=== PATIENT | male | born 1955 | race American Indian/Alaskan Native ===

== ENCOUNTER 2016-08-09 20:35 | Emergency (ER) | payer MEDICARE ==
[2016-08-09 20:49] VITALS: BP 163/98
== END 2016-08-09 20:47 | disposition left against medical advice (07) ==
LOC: ED 20:35
DX: M79.671 Pain in right foot (principal); M79.672 Pain in left foot; Z53.21 Procedure and treatment not carried out due to patient leaving prior to being seen by health care provider

== ENCOUNTER 2016-08-11 01:58 | Emergency (ER) | payer MEDICARE ==
[2016-08-11 02:08] VITALS: BP 148/94
--- NOTE | 2016-08-11 04:23 | Emergency Department Report ---
ED Lower Extremity HPI - General Chief Complaint: Extremity Problem,Nontraumatic Stated Complaint: BILATERAL FOOT PAIN Time Seen by Provider: 08/11/16 03:37 Source: patient Mode of arrival: Ambulatory Limitations: No Limitations - History of Present Illness Initial Comments: This is a 61-year-old male that presents with chronic intermittent bilateral feet pain that has been going on since 2012. Patient stated has an appointment today with his "foot" doctor. Patient denies numbness, tingling, CP, SOB, n/v, fever, chills, headache, swelling,stiff neck, calf pain, calf tenderness, difficulty breathing, feeling of cold sensation in extremities. Patient denies any trauma or falls to the area. Patient describes pain as throbbing 11/29. Allergies to aspirin. MD Complaint: foot injury -: Gradual, year(s) (4) Injury: Foot: Right, Left Severity: moderate Severity scale (0 -10): 8 Improves With: nothing Worsens With: nothing Associated Symptoms: ambulatory. denies: snap/pop sensation, swelling, numbness , tingling, unable to bear weight, able to partially bear weight - Related Data Previous Rx's Medication Instructions Recorded Last Taken Type Lisinopril [Zestril TAB] 10 mg PO QDAY #60 tablet 06/11/14 Unknown Rx Potassium Chloride [Klor-Con M10] 2 tab PO DAILY #60 tab.er.prt 06/11/14 Unknown Rx Omeprazole [PriLOSEC] 40 mg PO DAILY #60 capsule. 08/03/14 Unknown Rx Ibuprofen [Motrin 400 MG tab] 400 mg PO Q8H PRN #20 tablet 10/03/14 Unknown Rx traMADol [Ultram 50 MG tab] 50 mg PO Q6HR PRN #10 tablet 10/03/14 Unknown Rx Acetaminophen/Codeine [Tylenol #3] 1 tab PO Q8H PRN #21 tab 12/09/14 Unknown Rx Diclofenac [Seda Gee] 75 mg PO Q12H #30 tablet 12/09/14 Unknown Rx Acetaminophen [Tylenol] 650 mg PO Q6HR PRN #15 tablet 08/11/16 Unknown Rx Allergies Allergy/AdvReac Type Severity Reaction Status Date / Time aspirin AdvReac Vomiting Verified 12/04/14 03:38 ED Review of Systems ROS: Stated complaint: BILATERAL FOOT PAIN Other details as noted in HPI Constitutional: denies: chills, fever Eyes: denies: eye pain, eye discharge, vision change ENT: denies: ear pain, throat pain Respiratory: denies: cough, shortness of breath, wheezing Cardiovascular: denies: chest pain, palpitations Endocrine: no symptoms reported Gastrointestinal: denies: abdominal pain, nausea, diarrhea Genitourinary: denies: urgency, dysuria Musculoskeletal: denies: back pain, joint swelling, arthralgia Skin: denies: rash, lesions Neurological: denies: headache, weakness, paresthesias Psychiatric: denies: anxiety, depression Hematological/Lymphatic: denies: easy bleeding, easy bruising ED Past Medical Hx - Past Medical History Previous Medical History?: Yes Hx Hypertension: Yes Hx Heart Attack/AMI: No Hx Congestive Heart Failure: Yes (per chart, pt denies) Hx Diabetes: No Hx Deep Vein Thrombosis: No Hx Pulmonary Embolism: No Hx GERD: Yes Hx Arthritis: Yes Hx Asthma: No Hx COPD: No Hx Tuberculosis: No Hx HIV: No Additional medical history: high cholesterol, hypokalemia,PANCREATITIS - Surgical History Past Surgical History?: Yes Hx Coronary Stent: No Hx Open Heart Surgery: No Hx Pacemaker: No Hx Internal Defibrillator: No Hx Cholecystectomy: No Hx Appendectomy: No Hx Breast Surgery: No Additional Surgical History: hernia repair in 2006 - Social History Smoking Status: Current Every Day Smoker Substance Use Type: Alcohol - Medications Home Medications: Home Medications Medication Instructions Recorded Confirmed Last Taken Type Lisinopril [Zestril TAB] 10 mg PO QDAY #60 tablet 06/11/14 08/03/14 Unknown Rx Potassium Chloride [Klor-Con M10] 2 tab PO DAILY #60 tab.er.prt 06/11/14 Unknown Rx Omeprazole [PriLOSEC] 40 mg PO DAILY #60 capsule.dr 08/03/14 Unknown Rx Ibuprofen [Motrin 400 MG tab] 400 mg PO Q8H PRN #20 tablet 10/03/14 Unknown Rx traMADol [Ultram 50 MG tab] 50 mg PO Q6HR PRN #10 tablet 10/03/14 Unknown Rx Acetaminophen/Codeine [Tylenol #3] 1 tab PO Q8H PRN #21 tab 12/09/[address] [Seda Gee] 75 mg PO Q12H #30 tablet 12/09/14 Unknown Rx Acetaminophen [Tylenol] 650 mg PO Q6HR PRN #15 tablet 08/11/16 Unknown Rx ED Physical Exam - General Limitations: No Limitations General appearance: alert, in no apparent distress - Head Head exam: Present: atraumatic, normocephalic, normal inspection - Eye Eye exam: Present: normal appearance, PERRL, EOMI. Absent: scleral icterus, conjunctival injection, nystagmus, periorbital swelling, periorbital tenderness Pupils: Present: normal accommodation - ENT ENT exam: Present: normal exam, normal orophraynx, mucous membranes moist, TM's normal bilaterally, normal external ear exam - Neck Neck exam: Present: normal inspection, full ROM. Absent: tenderness, meningismus, lymphadenopathy, thyromegaly - Respiratory Respiratory exam: Present: normal lung sounds bilaterally. Absent: respiratory distress, wheezes, rales, rhonchi, stridor, chest wall tenderness, accessory muscle use, decreased breath sounds, prolonged expiratory - Cardiovascular Cardiovascular Exam: Present: regular rate, normal rhythm, normal heart sounds. Absent: bradycardia, tachycardia, irregular rhythm, systolic murmur, diastolic murmur, rubs, gallop - GI/Abdominal GI/Abdominal exam: Present: soft, normal bowel sounds. Absent: distended, tenderness, guarding, rebound, rigid, diminished bowel sounds - Rectal Rectal exam: Present: deferred - Extremities Exam Extremities exam: Present: normal inspection, full ROM, normal capillary refill. Absent: tenderness, pedal edema, joint swelling, calf tenderness - Expanded Lower Extremity Exam Left Hip exam: Present: normal inspection (bilateral), full ROM. Absent: tenderness , swelling, abrasion Upper Leg exam: Present: normal inspection (bilateral), full ROM. Absent: tenderness, swelling, crepidus, dislocation, erythema Knee exam: Present: normal inspection (bilateral), full knee extension. Absent : full ROM, tenderness, swelling, abrasion, laceration, ecchymosis, deformity, crepidus, dislocation, erythema, effusion, pain w/ pronation/supination, posterior draw sign, pain/laxity with valgus, pain/laxity with varus Lower Leg exam: Present: normal inspection (bilateral), full ROM. Absent: tenderness, swelling, abrasion, laceration, ecchymosis, deformity, crepidus, dislocation, erythema, palpable cord, Rosario's sign Ankle exam: Present: normal inspection (bilateral), full ROM. Absent: tenderness, swelling, abrasion, laceration, ecchymosis, deformity, crepidus, dislocation, erythema, anterior draw sign Foot/Toe exam: Present: normal inspection (bilateral), full ROM. Absent: tenderness, swelling, abrasion, laceration, ecchymosis, deformity, crepidus, dislocation, erythema, amputation, puncture wound, foreign body, calcaneal tenderness, tenderness at base of 5th metatarsal, nail avulsion, subungual hematoma Neuro vascular tendon exam: Present: no vascular compromise Gait: Positive: observed and normal - Back Exam Back exam: Present: normal inspection, full ROM. Absent: tenderness, CVA tenderness (R), CVA tenderness (L), muscle spasm, paraspinal tenderness, vertebral tenderness, rash noted - Neurological Exam Neurological exam: Present: alert, oriented X3, CN II-XII intact, normal gait, reflexes normal - Psychiatric Psychiatric exam: Present: normal affect, normal mood - Skin Skin exam: Present: warm, dry, intact, normal color. Absent: rash ED Course Vital Signs 08/11/16 02:03 Temperature 98.8 F Pulse Rate 67 Respiratory 18 Rate Blood Pressure 148/94 O2 Sat by Pulse 98 Oximetry - Reevaluation(s) Reevaluation #1: 08/11/16 04:25 Patient is resting comfortably with no signs of distress noted. ED Lower Extremity MDM - Medical Decision Making Ed course: This is a 61-year-old male that presents with chronic diana feet pain 1- after my physical exam, due to pt having chronic pain wo recent trauma imaging has not been obtained. 2- pt stated has an appointment with a "foot" doctor today stated will f/u with his doctor in the morning 3- pt received acetaminophen in the ED and discharged. 4- at time time of discharge, the patient does not seem toxic or ill in appearance. No acute signs of distress noted. Patient agrees to discharge treatment plan of care. No further questions noted by the patient. 5- Wells Criteria for DVT: 0 points. Low risk group for DVT. "Unlikely" according to Well's DVT studies. Critical care attestation.: If time is entered above; I have spent that time in minutes in the direct care of this critically ill patient, excluding procedure time. ED Disposition Clinical Impression: Chronic foot pain Qualifiers: Laterality: unspecified laterality Qualified Code(s): M79.673 - Pain in unspecified foot Arthralgia Qualifiers: Joint pain location: foot Laterality: bilateral Qualified Code(s): M79.671 - Pain in right foot Disposition: - TO HOME OR SELFCARE Is pt being admited?: No Does the pt Need Aspirin: No Condition: Stable Instructions: Arthralgia (ED) Additional Instructions: Follow-up with the appointment that you currently have today with her foot doctor. Take acetaminophen as prescribed as needed for pain. Prescriptions: Acetaminophen [Tylenol] 650 mg PO Q6HR PRN #15 tablet PRN Reason: Pain Referrals: EVELYN SALEH [Other] - 3-5 Days [facility] [Outside] - 3-5 Days [facility] [Outside] - 3-5 Days RENATE LANTIGUA DPM [Staff Physician] - 24 Hours Forms: Work/School Release Form(ED)
== END 2016-08-11 05:43 | disposition home or self-care (01) ==
LOC: ED 01:58
DX: M79.671 Pain in right foot (principal); M79.672 Pain in left foot; I10 Essential (primary) hypertension; I50.9 Heart failure, unspecified; M19.90 Unspecified osteoarthritis, unspecified site; K21.9 Gastro-esophageal reflux disease without esophagitis; E78.00 Pure hypercholesterolemia, unspecified; E87.6 Hypokalemia; F17.200 Nicotine dependence, unspecified, uncomplicated; Z88.6 Allergy status to analgesic agent
CPT/HCPCS: 99282

== ENCOUNTER 2016-08-28 05:45 | Emergency (ER) | payer MEDICARE ==
[2016-08-28 06:17] VITALS: BP 144/90
[2016-08-28 06:57] LABS: Bilirubin,Urine NEG (Negative); Blood,Urine NEG (Negative); Ketones,Urine NEG (Negative); Leukocyte Esterase,Urine NEG (Negative); Nitrite,Urine NEG (Negative); Protein,Urine <15 mg/dL mg/dL (Negative)
--- NOTE | 2016-08-28 10:34 | XRay Report ---
CHEST TWO VIEWS: 08/28/16 05:45:00 CLINICAL: Shortness of breath. COMPARISON: None FINDINGS: Normal heart and pulmonary vasculature. The lungs are normally expanded and clear. Mild anterior wedging of mid thoracic vertebral bodies but no fracture lines. Mild exaggerated thoracic kyphosis. IMPRESSION: Chronic mild thoracic compression fractures.No acute cardiopulmonary process.
--- NOTE | 2016-08-28 16:24 | ED Elopement Review ---
ED Pt Elopement review - Results review Lab results: Laboratory Tests 08/28/16 05:56 Urine Color Yellow Urine Turbidity Clear Urine pH 5.0 Ur Specific Waterflow 1.014 Urine Protein <15 mg/dl Urine Glucose (UA) Neg Urine Ketones Neg Urine Blood Neg Urine Nitrite Neg Urine Bilirubin Neg Urine Urobilinogen 2.0 Ur Leukocyte Esterase Neg Urine WBC (Auto) 2.0 Urine RBC (Auto) 2.0 U Epithel Cells (Auto) < 1.0 Hyaline Casts 2 - Call Back decision Pt Call Back Decision: Pt to F/U with PMD
== END 2016-08-28 07:07 | disposition left against medical advice (07) ==
LOC: ED 05:45
DX: G47.00 Insomnia, unspecified (principal); Z53.21 Procedure and treatment not carried out due to patient leaving prior to being seen by health care provider
CPT/HCPCS: 71020; 81001; 93005; 93010

== ENCOUNTER 2016-09-01 01:37 | Emergency (ER) | payer MEDICARE ==
[2016-09-01 01:48] VITALS: BP 147/92
== END 2016-09-01 01:42 | disposition left against medical advice (07) ==
LOC: ED 01:37
DX: R51 Headache (principal); Z53.21 Procedure and treatment not carried out due to patient leaving prior to being seen by health care provider

== ENCOUNTER 2016-10-09 11:43 | Emergency (ER) | payer MEDICARE ==
[2016-10-09 12:40] LABS: Bacteria,Urine 1+ /HPF (Negative); Bilirubin,Urine NEG (Negative); Blood,Urine NEG (Negative); Ketones,Urine NEG (Negative); Leukocyte Esterase,Urine NEG (Negative); Mucus,Urine FEW /HPF; Nitrite,Urine NEG (Negative); Protein,Urine <15 mg/dL mg/dL (Negative); Urobilinogen,Urine < 2.0 mg/dL (<2.0); WBC,Urine < 1.0 /HPF (0.0-6.0)
[2016-10-09] MEDS ORDERED: CATAPRES PO ONE (12:53)
[2016-10-09 13:12] LABS: Basophils % (Auto) 0.4 % (0.0-1.8); Hematocrit 36.5 % (35.5-45.6); Hemoglobin 11.8 gm/dl (11.8-15.2); Mean Corpuscular HGB Conc 32 % (32-34); Mean Corpuscular Hemoglobin 28 pg (28-32); Mean Corpuscular Volume 85 fl (84-94); Platelet Count 183 K/mm3 (140-440); Red Blood Count 4.28 M/mm3 (3.65-5.03); Red Cell Distribution Width 14.7 % (13.2-15.2); White Blood Count 5.4 K/mm3 (4.5-11.0)
[2016-10-09 13:28] LABS: Alanine Aminotransferase 29 units/L (7-56); Albumin/Globulin Ratio 1.6 %; Alkaline Phosphatase 75 units/L (35-129); Anion Gap 14 mmol/L; Blood Urea Nitrogen 8 mg/dL (9-20); Calcium 8.8 mg/dL (8.4-10.2); Carbon Dioxide 30 mmol/L (22-30); Chloride 99.7 mmol/L (98-107); Glucose 82 mg/dL (75-100); Potassium 3.5 mmol/L (3.6-5.0); Sodium 140 mmol/L (137-145); Total Protein 6.5 g/dL (6.3-8.2)
[2016-10-09] MEDS ORDERED: NORCO 5/325 PO ONE (13:45)
[2016-10-09] MEDS ORDERED: TORADOL IM ONE (13:45)
[2016-10-09 15:14] VITALS: BP 140/66
--- NOTE | 2016-10-09 15:32 | Emergency Department Report ---
HPI - General Chief Complaint: Back Pain/Injury Time Seen by Provider: 10/09/16 12:48 - HPI HPI: This is a 61-year-old -Citizen Of [place] male presents to the emergency department with complaint of a one-week history of intermittent lower back pain. The pain worsens with certain movements and/or bending. He denies any trauma or any injury. He has a past medical history of arthritis, GERD, hypertension, hyperlipidemia lipidemia. His primary care doctor is Dr. Silviano Zhang. He has not taken anything for her symptoms prior to presentation. The patient presents with elevated blood pressure and does say that he has been compliant with his medication. No recent travel or sick contacts at home. He denies any problem with bowel or bladder, numbness or paresthesias or any neurological deficits. ED Past Medical Hx - Past Medical History Hx Hypertension: Yes Hx Heart Attack/AMI: No Hx Congestive Heart Failure: Yes (per chart, pt denies) Hx Diabetes: No Hx Deep Vein Thrombosis: No Hx Pulmonary Embolism: No Hx GERD: Yes Hx Arthritis: Yes Hx Asthma: No Hx COPD: No Hx Tuberculosis: No Hx HIV: No Additional medical history: high cholesterol, hypokalemia,PANCREATITIS. Hiatal Hernia, Diverticulosis, Colon Polyps,. BPH - Surgical History Hx Coronary Stent: No Hx Open Heart Surgery: No Hx Pacemaker: No Hx Internal Defibrillator: No Hx Cholecystectomy: No Hx Appendectomy: No Hx Breast Surgery: No Additional Surgical History: hernia repair in 2006 - Social History Smoking Status: Current Every Day Smoker Substance Use Type: None - Medications Home Medications: Home Medications Medication Instructions Recorded Confirmed Last Taken Type Amlodipine Besylate [Amlodipine 1 tab PO DAILY 10/09/16 10/09/16 10/08/16 History Besylate] AtorvaSTATin 40 mg PO HS 10/09/16 10/09/16 10/08/16 History Carvedilol [Coreg] 25 mg PO BID 10/09/16 10/09/16 10/08/16 History Finasteride [Proscar] 5 mg PO QDAY 10/09/16 10/09/16 10/08/16 History Furosemide [Lasix] 20 mg PO QDAY 10/09/16 10/09/16 10/08/16 History Lisinopril [Zestril TAB] 40 mg PO QDAY 10/09/16 10/09/16 10/08/16 History Omeprazole 40 mg PO TID 10/09/16 10/09/16 10/08/16 History Ranitidine HCl [Acid Control] 150 mg PO DAILY 10/09/16 10/09/16 Unknown History ED Review of Systems ROS: Stated complaint: BACK PAIN Other details as noted in HPI Comment: All other systems reviewed and negative Constitutional: denies: chills, fever Eyes: denies: eye pain, eye discharge, vision change ENT: denies: ear pain, throat pain Respiratory: denies: cough, shortness of breath, wheezing Cardiovascular: denies: chest pain, palpitations Gastrointestinal: denies: abdominal pain, nausea, diarrhea Genitourinary: denies: urgency, dysuria Musculoskeletal: back pain. denies: arthralgia Skin: denies: rash, lesions Neurological: denies: headache, weakness, paresthesias Physical Exam - Physical Exam Vital Signs: Vital Signs 10/09/16 10/09/16 10/09/16 12:04 12:34 12:45 Temperature 98.6 F Pulse Rate 63 60 Respiratory 19 14 14 Rate Blood Pressure 176/107 191/91 Blood Pressure [Left] O2 Sat by Pulse 100 100 Oximetry 10/09/16 10/09/16 10/09/16 12:52 13:01 13:15 Temperature 98.4 F Pulse Rate 52 L 45 L 54 L Respiratory 14 16 15 Rate Blood Pressure 191/91 191/91 Blood Pressure 191/91 [Left] O2 Sat by Pulse 100 100 99 Oximetry 10/09/16 10/09/16 10/09/16 13:31 13:45 14:01 Temperature Pulse Rate 52 L 52 L 65 Respiratory 16 17 11 L Rate Blood Pressure 191/91 191/91 191/91 Blood Pressure [Left] O2 Sat by Pulse 97 97 98 Oximetry 10/09/16 10/09/16 10/09/16 14:15 14:31 14:45 Temperature Pulse Rate 49 L 59 L 60 Respiratory 18 15 20 Rate Blood Pressure 185/90 191/91 191/91 Blood Pressure [Left] O2 Sat by Pulse 98 99 Oximetry 10/09/16 15:01 Temperature Pulse Rate 53 L Respiratory 16 Rate Blood Pressure 140/66 Blood Pressure [Left] O2 Sat by Pulse Oximetry Physical Exam: GENERAL: The patient is well-developed well-nourished. HENT: Normocephalic. Atraumatic. Patient has moist mucous membranes. EYES: Extraocular motions are intact. Pupils equal reactive to light bilaterally. NECK: Supple. Trachea is midline. CHEST/LUNGS: Clear to auscultation. There is no respiratory distress noted. HEART/CARDIOVASCULAR: Regular. There is no tachycardia. There is no gallop rub or murmur. ABDOMEN: Abdomen is soft, nontender. Patient has normal bowel sounds. There is no abdominal distention. SKIN: Skin is warm and dry. NEURO: The patient is awake, alert. The patient is cooperative. The patient has no focal neurologic deficits. The patient has normal speech and gait. DTR +2 over 4 bilaterally patella. MUSCULOSKELETAL: There is no tenderness or deformity. There is no limitation range of motion. There is no evidence of acute injury. Muscle strength 5 out of 5 for upper and lower extremities bilaterally including EHL. BACK: No midline thoracic or lumbar tenderness to palpation or deformity. There is reproducible bilateral lumbar paraspinal tenderness to palpation. ED Course Vital Signs 10/09/16 10/09/16 10/09/16 12:04 12:34 12:45 Temperature 98.6 F Pulse Rate 63 60 Respiratory 19 14 14 Rate Blood Pressure 176/107 191/91 Blood Pressure [Left] O2 Sat by Pulse 100 100 Oximetry 10/09/16 10/09/16 10/09/16 12:52 13:01 13:15 Temperature 98.4 F Pulse Rate 52 L 45 L 54 L Respiratory 14 16 15 Rate Blood Pressure 191/91 191/91 Blood Pressure 191/91 [Left] O2 Sat by Pulse 100 100 99 Oximetry 10/09/16 10/09/16 10/09/16 13:31 13:45 14:01 Temperature Pulse Rate 52 L 52 L 65 Respiratory 16 17 11 L Rate Blood Pressure 191/91 191/91 191/91 Blood Pressure [Left] O2 Sat by Pulse 97 97 98 Oximetry 10/09/16 10/09/16 10/09/16 14:15 14:31 14:45 Temperature Pulse Rate 49 L 59 L 60 Respiratory 18 15 20 Rate Blood Pressure 185/90 191/91 191/91 Blood Pressure [Left] O2 Sat by Pulse 98 99 Oximetry 10/09/16 15:01 Temperature Pulse Rate 53 L Respiratory 16 Rate Blood Pressure 140/66 Blood Pressure [Left] O2 Sat by Pulse Oximetry ED Medical Decision Making - Lab Data Result diagrams: 10/09/16 12:57 10/09/16 12:57 - Medical Decision Making 61-year-old male presents to the emergency department with complaint of low back pain it's been going on intermittently over the past week. There is been no injury or trauma. He denies any problems bowel or bladder, numbness or paresthesias or any neurological deficits. He appears low suspicion for any of the emergent condition such as cauda equina, epidural abscess or cord compression. He has tenderness to palpation to the paraspinal lumbar region but no midline step-off or deformity or tenderness. He does not have any neurological deficits and there has been no trauma I did not feel that any imaging of the lumbar or thoracic spine was necessary at this time. He was given a dose of Toradol as well as 1 pain pill and upon reevaluation he says he is feeling greatly improved. He was seen in the toilet in the emergency department and appears stable while doing so. He had elevated blood pressure upon presentation so he was given a dose of Catapres and it is currently 140/ 90. He will be encouraged to follow-up with his primary care physician, Dr. Silviano Zhang, and will also be given a referral for a neurosurgeon. - Differential Diagnosis muscle spasm, lumbar strain, contusion Critical Care Time: No Critical care attestation.: If time is entered above; I have spent that time in minutes in the direct care of this critically ill patient, excluding procedure time. ED Disposition Clinical Impression: Back pain Qualifiers: Back pain location: low back pain Chronicity: unspecified Back pain laterality : bilateral Sciatica presence: without sciatica Qualified Code(s): M54.5 - Low back pain Hypertension Qualifiers: Hypertension type: essential hypertension Qualified Code(s): I10 - Essential ( primary) hypertension Disposition: DC-01 TO HOME OR SELFCARE Is pt being admited?: No Condition: Stable Instructions: Hypertension (ED), Back Pain (ED), Low Back Strain (ED) Additional Instructions: Please follow-up with your primary care physician in the next few days. I've given U a referral for a local neurosurgeon, Sheron Mcgregor she needs to follow-up regarding your back pain. Return to the emergency Department with any worsening of her symptoms or any acute distress. Referrals: PRIMARY CARE, [Primary Care Provider] - 3-5 Days ABHILASH SERRANO MD [Staff Physician] - 3-5 Days Time of Disposition: 15:34
== END 2016-10-09 15:53 | disposition home or self-care (01) ==
LOC: ED 11:43
DX: M54.5 Low back pain (principal); I10 Essential (primary) hypertension; I50.9 Heart failure, unspecified; K21.9 Gastro-esophageal reflux disease without esophagitis; M19.90 Unspecified osteoarthritis, unspecified site; E78.00 Pure hypercholesterolemia, unspecified; F17.200 Nicotine dependence, unspecified, uncomplicated
CPT/HCPCS: 36415; 80053; 81001; 85025; 96372; 99283; J1885

== ENCOUNTER 2016-10-13 12:18 | Outpatient (CLI) | payer MEDICARE ==
--- NOTE | 2016-10-13 16:36 | Cat Scan Report ---
CT of the abdomen and pelvis with IV and oral contrast. History: Abdominal pain. Findings: Comparison is made to previous study on December 29, 2014. The liver and spleen are normal in size and configuration with no focal abnormalities. The pancreas and gallbladder appear normal. The kidneys are normal in size and configuration with no evidence of mass or hydronephrosis. The adrenal glands are normal. There no pelvic masses or abnormal fluid collections. No mesenteric inflammation is seen. There is no radiographic evidence of appendicitis. The prostate is mildly enlarged grossly unchanged since the previous study. Impression: No significant findings. Stable mild prostatic enlargement.
== END 2016-10-13 12:19 | disposition home or self-care (01) ==
LOC: CT 12:18
PROVIDERS: ATTEND Internal Medicine Gastroenterology
DX: K29.70 Gastritis, unspecified, without bleeding (principal); K21.9 Gastro-esophageal reflux disease without esophagitis; R63.4 Abnormal weight loss; N40.0 Benign prostatic hyperplasia without lower urinary tract symptoms; I11.0 Hypertensive heart disease with heart failure; I50.9 Heart failure, unspecified; E78.00 Pure hypercholesterolemia, unspecified; F17.200 Nicotine dependence, unspecified, uncomplicated
CPT/HCPCS: 74177; Q9967

== ENCOUNTER 2016-10-27 04:08 | Emergency (ER) | payer MEDICARE ==
[2016-10-27] MEDS ORDERED: MOTRIN PO ONE (06:09)
--- NOTE | 2016-10-27 06:13 | ED Elopement Review ---
ED Pt Elopement review - Call Back decision Pt Call Back Decision: No action required (Attempted to go see patient but he says he has to leave to "go see my daughter." Seen standing, walking and appears stable and in no distress. VSS.)
[2016-10-27 06:28] VITALS: BP 184/97
== END 2016-10-27 06:27 | disposition left against medical advice (07) ==
LOC: ED 04:08
DX: M62.830 Muscle spasm of back (principal); M19.90 Unspecified osteoarthritis, unspecified site; K21.9 Gastro-esophageal reflux disease without esophagitis; I10 Essential (primary) hypertension; I50.9 Heart failure, unspecified; Z88.6 Allergy status to analgesic agent; Z53.21 Procedure and treatment not carried out due to patient leaving prior to being seen by health care provider

== ENCOUNTER 2018-09-13 20:51 | Observation (INO) | payer MEDICARE ==
[2018-09-13] MEDS ORDERED: ASPIRIN PO ONE (21:17)
[2018-09-13 21:50] LABS: Basophils # (Auto) 0.1 K/mm3 (0.0-0.1); Basophils % (Auto) 0.8 % (0.0-1.8); Eosinophils % (Auto) 0.2 % (0.0-4.3); Hemoglobin 14.5 gm/dl (11.8-15.2); Lymphocytes # (Auto) 1.2 K/mm3 (1.2-5.4); Lymphocytes % (Auto) 16.1 % (13.4-35.0); Mean Corpuscular HGB Conc 35 % (32-34); Mean Corpuscular Volume 84 fl (84-94); Monocytes # (Auto) 0.6 K/mm3 (0.0-0.8); Monocytes % (Auto) 7.4 % (0.0-7.3); Platelet Count 185 K/mm3 (140-440); Red Blood Count 5.01 M/mm3 (3.65-5.03); Red Cell Distribution Width 14.1 % (13.2-15.2)
[2018-09-13] MEDS ORDERED: PEPCID IV ONE (21:59)
[2018-09-13] MEDS ORDERED: APRESOLINE IV ONE (21:59)
[2018-09-13] MEDS ORDERED: CARAFATE PO ONE (22:00)
--- NOTE | 2018-09-13 22:01 | Emergency Department Report ---
ED General Adult HPI - General Chief complaint: Chest Pain Stated complaint: CHEST BACK ABD PAIN Time Seen by Provider: 09/13/18 21:50 Source: patient, RN notes reviewed, old records reviewed Mode of arrival: Ambulatory Limitations: No Limitations - History of Present Illness Initial comments: This is a 63-year-old gentleman. His primary care doctor is Dr. David Zhang. He reports a past history of hypertension and high cholesterol. The patient presen ts to the ER today with complaint of nontraumatic chest pain and abdominal pain. The chest pain is present for the past 3-4 days. It is intermittent. It is occasionally on the left side, right side, and epigastric region. It radiates down to the supraumbilical region. He describes it as a sensation of "reflux." He denies shortness of breath, vomiting, diaphoresis. He denies recent aspirin consumption. He denies DVT, pulmonary embolism risk factors. He denies back pain. His abdominal pain is crampy and achy, and intermittent. He states that he feels hungry. He denies recent consumption of cocaine, methamphetamines, and he denies erectile dysfunction medication use -: Gradual, days(s) Location: chest, abdomen Quality: aching Consistency: intermittent Improves with: none Worsens with: none - Related Data Home Medications Medication Instructions Recorded Confirmed Last Taken Amlodipine Besylate 1 tab PO DAILY 10/09/16 10/09/16 10/08/16 AtorvaSTATin 40 mg PO HS 10/09/16 10/09/16 10/08/16 Carvedilol [Coreg] 25 mg PO BID 10/09/16 10/09/16 10/08/16 Finasteride [Proscar] 5 mg PO QDAY 10/09/16 10/09/16 10/08/16 Furosemide [Lasix] 20 mg PO QDAY 10/09/16 10/09/16 10/08/16 Lisinopril [Zestril TAB] 40 mg PO QDAY 10/09/16 10/09/16 10/08/16 Omeprazole 40 mg PO TID 10/09/16 10/09/16 10/08/16 Ranitidine HCl [Acid Control] 150 mg PO DAILY 10/09/16 10/09/16 Unknown Previous Rx's Medication Instructions Recorded Last Taken Type methOCARBAMOL [Robaxin TAB] 500 mg PO TID #21 tab 10/27/16 Unknown Rx Allergies Allergy/AdvReac Type Severity Reaction Status Date / Time aspirin AdvReac Vomiting Verified 10/09/16 12:08 ED Review of Systems ROS: Stated complaint: CHEST BACK ABD PAIN Other details as noted in HPI Eyes: denies: eye discharge ENT: denies: epistaxis Respiratory: denies: cough Cardiovascular: chest pain Gastrointestinal: abdominal pain Genitourinary: denies: dysuria Musculoskeletal: denies: arthralgia Skin: denies: lesions Neurological: denies: weakness Hematological/Lymphatic: denies: easy bleeding ED Past Medical Hx - Past Medical History Previous Medical History?: Yes Hx Hypertension: Yes Hx Heart Attack/AMI: No Hx Congestive Heart Failure: Yes (per chart, pt denies) Hx Diabetes: No Hx Deep Vein Thrombosis: No Hx Pulmonary Embolism: No Hx GERD: Yes Hx Arthritis: Yes Hx Asthma: No Hx COPD: No Hx Tuberculosis: No Hx HIV: No Additional medical history: high cholesterol, hypokalemia,PANCREATITIS. Hiatal Hernia, Diverticulosis, Colon Polyps,. BPH - Surgical History Past Surgical History?: Yes Hx Coronary Stent: No Hx Open Heart Surgery: No Hx Pacemaker: No Hx Internal Defibrillator: No Hx Cholecystectomy: No Hx Appendectomy: No Hx Breast Surgery: No Additional Surgical History: hernia repair in 2006 - Social History Smoking Status: Never Smoker Substance Use Type: None - Medications Home Medications: Home Medications Medication Instructions Recorded Confirmed Last Taken Type Amlodipine Besylate 1 tab PO DAILY 10/09/16 10/09/16 10/08/16 History AtorvaSTATin 40 mg PO HS 10/09/16 10/09/16 10/08/16 History Carvedilol [Coreg] 25 mg PO BID 10/09/16 10/09/16 10/08/16 History Finasteride [Proscar] 5 mg PO QDAY 10/09/16 10/09/16 10/08/16 History Furosemide [Lasix] 20 mg PO QDAY 10/09/16 10/09/16 10/08/16 History Lisinopril [Zestril TAB] 40 mg PO QDAY 10/09/16 10/09/16 10/08/16 History Omeprazole 40 mg PO TID 10/09/16 10/09/16 10/08/16 History Ranitidine HCl [Acid Control] 150 mg PO DAILY 10/09/16 10/09/16 Unknown History methOCARBAMOL [Robaxin TAB] 500 mg PO TID #21 tab 10/27/16 Unknown Rx ED Physical Exam - General Limitations: No Limitations General appearance: alert, in no apparent distress - Head Head exam: Present: atraumatic, normocephalic - Eye Eye exam: Present: normal appearance, EOMI. Absent: nystagmus - ENT ENT exam: Present: normal exam, normal orophraynx, mucous membranes moist, normal external ear exam - Neck Neck exam: Present: normal inspection, full ROM. Absent: tenderness, meningismus - Respiratory Respiratory exam: Present: normal lung sounds bilaterally. Absent: respiratory distress - Cardiovascular Cardiovascular Exam: Present: normal rhythm, tachycardia, normal heart sounds. Absent: systolic murmur, diastolic murmur, rubs, gallop - GI/Abdominal GI/Abdominal exam: Present: soft. Absent: distended, tenderness, guarding, rebound, rigid, pulsatile mass - Rectal Rectal exam: Present: deferred - Extremities Exam Extremities exam: Present: normal inspection, full ROM, other (2+ pulses noted in the bilateral upper, lower extremities. Compartments soft. No long bony tenderness. The pelvis is stable.). Absent: pedal edema, calf tenderness - Back Exam Back exam: Present: normal inspection, full ROM. Absent: tenderness, CVA tenderness (R), CVA tenderness (L), paraspinal tenderness, vertebral tenderness - Neurological Exam Neurological exam: Present: alert, other (Extraocular movements intact. Tongue midline. No facial droop. Facial sensation intact to light touch in the V1, V2, V3 distribution bilaterally. 5 and 5 strength in 4 extremities.. Sensation is intact to light touch in 4 extremities.). Absent: motor sensory deficit - Psychiatric Psychiatric exam: Present: normal affect, normal mood - Skin Skin exam: Present: warm, dry, intact, normal color. Absent: rash ED Course Vital Signs 09/13/18 09/13/18 09/13/18 21:14 22:10 23:00 Temperature 98.4 F Pulse Rate 122 H 100 H 108 H Respiratory 20 18 14 Rate Blood Pressure 229/135 Blood Pressure 217/130 174/97 [Left] O2 Sat by Pulse 100 100 99 Oximetry 09/13/18 09/14/18 09/14/18 23:57 01:15 04:16 Temperature Pulse Rate 112 H 110 H 83 Respiratory 17 24 14 Rate Blood Pressure Blood Pressure 215/165 190/104 146/87 [Left] O2 Sat by Pulse 99 97 98 Oximetry - Reevaluation(s) Reevaluation #1: 09/13/18 22:11 Differential diagnosis, including not limited to: GERD, gastritis, hiatal hernia, aortic disease, acute coronary syndrome pancreatitis, constipation,, secondary gain Assessment and plan: 63-year-old gentleman who appears markedly comfortable, also appears to be somewhat undomiciled, who endorses chest pain and abdominal pain. Given his duration of symptoms, equal pulses in the upper and lower extremities, lack of pulsatile abdominal mass, I think aortic disease is unlikely. However, on x-ray of the chest, the mediastinum does appear to be somewhat prominent, and the aorta appears to be uncoiled. Therefore, we will start him on fluids and hydralazine, pain medication, and obtain emergent CT angiogram of the chest, abdomen, pelvis. Tachycardia now basically resolved, when I am talking to the patient, his heart rate is in the 90s. He is also not hypoxic. He is low risk by well's criteria. Therefore, I think pulmonary embolism is unlikely. Blood pressure still somewhat elevated, hydralazine ordered. If no aortic disease is identified, would admit patient to this medical service for cardiac risk stratification and hypertension control, given his age, cardiovascular risk factor burden, and heart score. Reevaluation #2: 09/14/18 02:[address] chest negative for acute disease. Patient appears quite comfortable. CT scan abdomen and pelvis pending interpretation. Reevaluation #3: 09/14/18 05:05 CT scan of the abdomen and pelvis is negative for acute disease. The hospital physician Dr. Mcdonald has accepted the patient to the medical service. Patient endorses allergy to aspirin, therefore, we will initiate antiplatelet therapy with Plavix. ED Medical Decision Making - Lab Data Result diagrams: 09/13/18 21:29 09/13/18 21:29 Vital Signs 09/13/18 09/13/18 21:14 22:10 Temperature 98.4 F Pulse Rate 122 H 100 H Respiratory 20 18 Rate Blood Pressure 229/135 Blood Pressure 217/130 [Left] O2 Sat by Pulse 100 100 Oximetry Lab Results 09/13/18 Range/Units 21:29 WBC 7.5 (4.5-11.0) K/mm3 RBC 5.01 (3.65-5.03) M/mm3 Hgb 14.5 (11.8-15.2) gm/dl Hct 42.0 (35.5-45.6) % MCV 84 (84-94) fl MCH 29 (28-32) pg MCHC 35 H (32-34) % RDW 14.1 (13.2-15.2) % Plt Count 185 (140-440) K/mm3 Lymph % (Auto) 16.1 (13.4-35.0) % [place] % (Auto) 7.4 H (0.0-7.3) % Eos % (Auto) 0.2 (0.0-4.3) % Baso % (Auto) 0.8 (0.0-1.8) % Lymph # 1.2 (1.2-5.4) K/mm3 [place] # 0.6 (0.0-0.8) K/mm3 Eos # 0.0 (0.0-0.4) K/mm3 Baso # 0.1 (0.0-0.1) K/mm3 Seg Neutrophils % 75.5 H (40.0-70.0) % Seg Neutrophils # 5.7 (1.8-7.7) K/mm3 - EKG Data -: EKG Interpreted by Me EKG shows normal: sinus rhythm Rate: normal - EKG Data 09/13/18 22:14 EKG #1 shows a sinus tachycardia, normal axis, left ventricular hypertrophy, poor R progression, atrial enlargement, premature ventricular contraction, the EKG is abnormal, the EKG is not consistent with ST elevation myocardial infarction, the EKG appears to have nonspecific changes when compared to prior EKGs from 2016, and 2017. - Radiology Data Radiology results: pending, report reviewed, image reviewed interpreted by me: X-ray of the chest shows unremarkable bony structures, unremarkable pulmonary s tructures, aorta appears to be uncoiled, mediastinum appears to be slightly widened Print Report Referring Physician: MARC HERMAN Patient Name: VAN SALGADO Date of : 1955 Sex: Male Report Date: 2018-09-13 Report Status: Finalized Findings [address] [place] [address] XRay Report Signed Patient: VAN SALGADO MR#: [id number] : 1955 Acct:[id number] Age/Sex: 63 / M ADM Date: 09/13/18 Loc: ED Attending Dr: Ordering Physician: MARC HERMAN MD Date of Service: 09/13/18 Procedure(s): XR chest routine 2V Accession Number(s): [id number] cc: MARC HERMAN MD Fluoro Time In Minutes: CHEST 2 VIEWS INDICATION / CLINICAL INFORMATION: Chest Pain. COMPARISON: None available. FINDINGS: SUPPORT DEVICES: None. HEART / MEDIASTINUM: No significant abnormality. LUNGS / PLEURA: No significant pulmonary or pleural abnormality. No pneumothorax. ADDITIONAL FINDINGS: No significant additional findings. IMPRESSION: No significant abnormality. Signer Name: Ken Campos MD FACR Signed: 09/13/2018 10:05 PM Workstation Name: [id number] Transcribed By: MS Dictated By: Ken Campos MD Electronically Authenticated By: Ken Campos MD Signed Date/Time: 09/13/182204 DD/ 03 Critical care attestation.: If time is entered above; I have spent that time in minutes in the direct care of this critically ill patient, excluding procedure time. ED Disposition Clinical Impression: Acute chest pain, Acute abdominal pain, Hypertensive urgency Disposition: OP ADMIT IP TO THIS HOSP Is pt being admited?: Yes Condition: Good Instructions: Chest Pain (ED) Referrals: DAVID ZHANG MD [Primary Care Provider] - 3-5 Days
--- NOTE | 2018-09-13 22:09 | XRay Report ---
CHEST 2 VIEWS INDICATION / CLINICAL INFORMATION: Chest Pain. COMPARISON: None available. FINDINGS: SUPPORT DEVICES: None. HEART / MEDIASTINUM: No significant abnormality. LUNGS / PLEURA: No significant pulmonary or pleural abnormality. No pneumothorax. ADDITIONAL FINDINGS: No significant additional findings. IMPRESSION: No significant abnormality. Signer Name: Ken Campos MD FACR Signed: 09/13/2018 10:05 PM Workstation Name: [id number]
[2018-09-13] MEDS: NITROSTAT SL PRN ×2 (22:19→23:58)
[2018-09-13 22:32] LABS: Blood Urea Nitrogen 10 mg/dL (9-20); Calcium 9.9 mg/dL (8.4-10.2); Hemolysis Index 0
[2018-09-13 22:48] LABS: BUN/Creatinine Ratio 10
[2018-09-13 22:54] LABS: Alanine Aminotransferase 18 units/L (7-56); Albumin 4.6 g/dL (3.9-5)
[2018-09-13 22:56] LABS: Bilirubin,Direct < 0.2 mg/dL (0-0.2)
[2018-09-13 23:33] LABS: Bilirubin,Urine NEG (Negative); Blood,Urine SM (Negative); Color,Urine Straw (Yellow); Protein,Urine <15 mg/dL mg/dL (Negative); Urobilinogen,Urine < 2.0 mg/dL (<2.0)
--- NOTE | 2018-09-14 02:40 | Cat Scan Report ---
CTA CHEST WITH IV CONTRAST INDICATION: Chest pain. Hypertension. TECHNIQUE: Axial CT images were obtained through the chest after injection of 100 cc Omnipaque 350 IV contrast. 3 plane MIP reconstructions were produced. All CT scans at this location are performed using CT dose reduction for ALARA by means of automated exposure control. COMPARISON: One view of the chest from 09/13/2018. FINDINGS: PULMONARY ARTERIES: Well-opacified without visualization of thromboemboli. AORTA AND ARTERIES: No significant abnormality. MEDIASTINUM: A noncalcified right thyroid nodule measures 7 mm. The trachea and main bronchi are rogers nt and normal in caliber. No mass or lymphadenopathy is seen. The heart is normal in size without a p ericardial effusion. LUNGS: No suspicious consolidation, nodule or mass. No pneumothorax or pleural effusion. ADDITIONAL FINDINGS: None. UPPER ABDOMEN: No acute findings. BONES: No significant osseous abnormality. IMPRESSION: 1. No CT evidence for pulmonary embolism. 2. No acute findings. Signer Name: Nate March MD Signed: 09/14/2018 2:35 AM Workstation Name: [id number]
--- NOTE | 2018-09-14 04:48 | Cat Scan Report ---
CTA ABDOMEN AND PELVIS INDICATION: Abdominal pain, chest pain, hypertension. TECHNIQUE: Axial CT images were obtained through the abdomen and pelvis before and after after injection of 100 cc Omnipaque 350 IV contrast. 3 plane MIP reconstructions were produced. [facility] CT dose reduction for ALARA by means of automated exposure control. COMPARISON: CT of the abdomen and pelvis with contrast from 10/13/2016. FINDINGS: VASCULAR FINDINGS: AORTA: Patent and normal in caliber. No dissection. CELIAC TRUNK: No significant abnormality. SUPERIOR MESENTERIC ARTERY: No significant abnormality. RENAL ARTERIES: No significant abnormality. INFERIOR MESENTERIC ARTERY: No significant abnormality. RIGHT ILIAC ARTERIES: Patent and normal in caliber with mild/moderate atherosclerosis, most notable a long the internal iliac artery. LEFT ILIAC ARTERIES: Patent and normal in caliber with mild/moderate atherosclerosis, most notable al tania the internal iliac artery. FEMORAL ARTERIES: No significant abnormality. NONTARGET STRUCTURES: LOWER CHEST: No significant abnormality. ABDOMEN: No significant abnormality. PELVIS: The prostate gland is enlarged and measures 5.4 x 3.4 cm. No additional significant abnormali ty. SKELETAL: No acute abnormality. There are degenerative changes of the pelvis. ADDITIONAL FINDINGS: None. IMPRESSION: Mild to moderate bilateral iliac atherosclerosis without an additional significant vascular abnormali ty of the abdomen or pelvis. Signer Name: Nate March MD Signed: 09/14/2018 4:44 AM Workstation Name: [id number]
[2018-09-14] MEDS ORDERED: PLAVIX PO ONE (05:06)
--- NOTE | 2018-09-14 05:42 | History and Physical Report ---
History of Present Illness Date of examination: 09/14/18 History of present illness: This a 63-year-old man with a history of hypertension, hyperlipidemia, GERD was brought to the emergency room with complaints of chest pain. Pain is across chest, intermittent every 5 minutes, described as a heavy sensation, with inten sity of 5/10, radiating to the back and abdomen. Denies diaphoresis, nausea vomiting, shortness of breath or palpitation, headache . He has not taken his anti-hypertensive in 1 week, had a stress test last year which was negative Review of systems Constitutional: no weight loss Ears, eyes, nose, mouth and throat: no nasal congestion, no nasal discharge, no sinus pressure, no vision change, no red eye. Neck: No neck pain or rigidity. Cardiovascular: no palpitations Respiratory: no cough, shortness of breath Gastrointestinal: no hematochezia, abdominal pain Genitourinary : no frequency , no hematuria Musculoskeletal: no joint swelling or muscle ache Integumentary: no rash, no pruritis Neurological: no parathesias, no focal weakness Endocrine: no cold or heat intolerance, no polyuria or polydipsia Hematologic/Lymphatic: no easy bruising, no easy bleeding, no gland swelling Allergic/Immunologic: no urticaria, no angioedema. PAST MEDICAL HISTORY:hypertension, hyperlipidemia, GERD PAST SURGICAL HISTORY: Hernia repair SOCIAL HISTORY: Denies alcohol, tobacco or drug use FAMILY HISTORY: Hypertension Medications and Allergies Allergies Allergy/AdvReac Type Severity Reaction Status Date / Time aspirin AdvReac Vomiting Verified 10/09/16 12:08 Home Medications Medication Instructions Recorded Confirmed Last Taken Type Amlodipine Besylate 1 tab PO DAILY 10/09/16 10/09/16 10/08/16 History AtorvaSTATin 40 mg PO HS 10/09/16 10/09/16 10/08/16 History Carvedilol [Coreg] 25 mg PO BID 10/09/16 10/09/16 10/08/16 History Finasteride [Proscar] 5 mg PO QDAY 10/09/16 10/09/16 10/08/16 History Furosemide [Lasix] 20 mg PO QDAY 10/09/16 10/09/16 10/08/16 History Lisinopril [Zestril TAB] 40 mg PO QDAY 10/09/16 10/09/16 10/08/16 History Omeprazole 40 mg PO TID 10/09/16 10/09/16 10/08/16 History Ranitidine HCl [Acid Control] 150 mg PO DAILY 10/09/16 10/09/16 Unknown History methOCARBAMOL [Robaxin TAB] 500 mg PO TID #21 tab 10/27/16 Unknown Rx Active Meds: Active Medications Nitroglycerin (Nitrostat) 0.4 mg SL .Q5MIN PRN PRN Reason: Chest Pain Last Admin: 09/13/18 23:58 Dose: 0.4 mg Documented by: Exam - Physical Exam Narrative exam: General Apperance: The patient sitting in bed no acute distress HEENT: Normocephalic, atraumatic. Pupils equally round and reactive to light, extraocular movement intact, and no sclericterus or JVD or thyromegaly or nodule. Neck supple, no carotid bruit, mucous membranes moist, no exudate or erythema Heart: S1-S2, regular is rhythm Lungs: Clear to auscultation bilaterally, breathing comfortable Abdomen: Positive bowel sounds, soft, nontender, nondistended, no organomegaly Extremities: No edema cyanosis clubbing Skin: no rash, nodule, warm and dry Neuro: Cranial nerves II through XII intact, speech is fluent, motor intact , sensation intact - Constitutional Vitals: Temp Pulse Resp BP Pulse Ox 98.4 F 83 14 146/87 98 09/13/18 21:14 09/14/18 04:16 09/14/18 04:16 09/14/18 04:16 09/14/18 04:16 Results - Labs CBC & Chem 7: 09/13/18 21:29 09/13/18 21:29 Labs: Abnormal lab results 09/13/18 09/13/18 09/13/18 Range/Units 21:29 21:29 21:29 MCHC 35 H (32-34) % [place] % (Auto) 7.4 H (0.0-7.3) % Seg Neutrophils % 75.5 H (40.0-70.0) % Glucose 113 H (75-100) mg/dL Total Creatine Kinase 196 H (55-170) units/L Lipase 11 L (13-60) units/L - Imaging and Cardiology Chest x-ray: report reviewed CT scan - abdomen: report reviewed CT scan - chest: report reviewed CT scan - pelvis: report reviewed Assessment and Plan Assessment Hypertensive urgency Chest pain GERD Plan Patient will be admitted to medicine check cardiac enzymes, consult cardiology Iv hydralazine for blood pressure control DVT prophalaxis, pervocet for pain
[2018-09-14] MEDS ORDERED: SODIUM CHLORIDE FLUSH SYRINGE 10 ML IV PRN (05:46)
[2018-09-14] MEDS ORDERED: ZOFRAN IV PRN (05:46)
[2018-09-14] MEDS ORDERED: PERCOCET 5/325 PO PRN (05:46)
[2018-09-14] MEDS ORDERED: TYLENOL PO PRN (05:46)
[2018-09-14] MEDS ORDERED: HEPARIN ONE (11:14)
[2018-09-14] MEDS: SODIUM CHLORIDE FLUSH SYRINGE 10 ML IV SCH ×2 (11:17→23:04)
[2018-09-14] MEDS: LOVENOX SUB-Q SCH (11:17)
[2018-09-14] MEDS ORDERED: LOVENOX SUB-Q ONE (11:19)
--- NOTE | 2018-09-14 14:25 | Consultation ---
History of Present Illness Consult date: 09/14/18 Consult reason: chest pain History of present illness: 63 year old male presenting with chest pain, abdominal pain and back pain. He follows with Dr Sears (primary filter changer) for ? history of arrhythmias. He states that last year he had a normal stress test as outpatient. He also states that he had a heart cath years ago that is non-revealing. He has a PMHx of hypertension and GERD. Recently he has been feeling like he has a cold with inte rmittent cough. CT chest and abdomen were unrevealing. ECG showing no interval changes when compared to previous. Troponin so far negative. Past History Past Medical History: GERD, hypertension Past Surgical History: No surgical history Social history: no significant social history Family history: no significant family history Medications and Allergies Allergies Allergy/AdvReac Type Severity Reaction Status Date / Time aspirin AdvReac Vomiting Verified 10/09/16 12:08 Home Medications Medication Instructions Recorded Confirmed Last Taken Type Amlodipine Besylate 1 tab PO DAILY 10/09/16 10/09/16 10/08/16 History AtorvaSTATin 40 mg PO HS 10/09/16 10/09/16 10/08/16 History Carvedilol [Coreg] 25 mg PO BID 10/09/16 10/09/16 10/08/16 History Finasteride [Proscar] 5 mg PO QDAY 10/09/16 10/09/16 10/08/16 History Furosemide [Lasix] 20 mg PO QDAY 10/09/16 10/09/16 10/08/16 History Lisinopril [Zestril TAB] 40 mg PO QDAY 10/09/16 10/09/16 10/08/16 History Omeprazole 40 mg PO TID 10/09/16 10/09/16 10/08/16 History Ranitidine HCl [Acid Control] 150 mg PO DAILY 10/09/16 10/09/16 Unknown History methOCARBAMOL [Robaxin TAB] 500 mg PO TID #21 tab 10/27/16 Unknown Rx Active Meds: Active Medications Acetaminophen (Tylenol) 650 mg PO Q4H PRN PRN Reason: Pain MILD(1-3)/Fever >100.5/LYNN Enoxaparin Sodium (Lovenox) 40 mg SUB-Q QDAY KAROLINA Last Admin: 09/14/18 11:17 Dose: 40 mg Documented by: Nitroglycerin (Nitrostat) 0.4 mg SL .Q5MIN PRN PRN Reason: Chest Pain Last Admin: 09/13/18 23:58 Dose: 0.4 mg Documented by: Ondansetron HCl (Zofran) 4 mg IV Q8H PRN PRN Reason: Nausea And Vomiting Oxycodone/Acetaminophen (Percocet 5/325) 1 tab PO Q6H PRN PRN Reason: Pain, Moderate (4-6) Sodium Chloride (Sodium Chloride Flush Syringe 10 Ml) 10 ml IV BID KAROLINA Last Admin: 09/14/18 11:17 Dose: 10 ml Documented by: Sodium Chloride (Sodium Chloride Flush Syringe 10 Ml) 10 ml IV PRN PRN PRN Reason: LINE FLUSH Review of Systems All systems: negative Physical Examination Vital Signs Temp Pulse Resp BP Pulse Ox 98.4 F 122 H 20 229/135 100 09/13/18 21:14 09/13/18 21:14 09/13/18 21:14 09/13/18 21:14 09/13/18 21:14 General appearance: no acute distress HEENT: Positive: PERRL Neck: Positive: neck supple Cardiac: Positive: Regular Rate Lungs: Positive: Normal Exam Neuro: Positive: Grossly Intact Abdomen: Positive: Soft Extremities: Present: normal Results 09/13/18 21:29 09/13/18 21:29 Cardiac Enzymes 09/13/18 Range/Units 21:29 AST 27 (5-40) units/L CBC 09/13/18 Range/Units 21:29 WBC 7.5 (4.5-11.0) K/mm3 RBC 5.01 (3.65-5.03) M/mm3 Hgb 14.5 (11.8-15.2) gm/dl Hct 42.0 (35.5-45.6) % Plt Count 185 (140-440) K/mm3 Lymph # 1.2 (1.2-5.4) K/mm3 [place] # 0.6 (0.0-0.8) K/mm3 Eos # 0.0 (0.0-0.4) K/mm3 Baso # 0.1 (0.0-0.1) K/mm3 Comprehensive Metabolic Panel 09/13/18 09/13/18 Range/Units 21:29 21:29 Sodium 139 (137-145) mmol/L Potassium 3.7 (3.6-5.0) mmol/L Chloride 99.6 (98-107) mmol/L Carbon Dioxide 26 (22-30) mmol/L BUN 10 (9-20) mg/dL Creatinine 1.0 (0.8-1.5) mg/dL Glucose 113 H (75-100) mg/dL Calcium 9.9 (8.4-10.2) mg/dL Direct Bilirubin < 0.2 (0-0.2) mg/dL Indirect Bilirubin 0.3 mg/dL AST 27 (5-40) units/L ALT 18 (7-56) units/L Alkaline Phosphatase 110 (35-129) units/L Total Protein 8.0 (6.3-8.2) g/dL Albumin 4.6 (3.9-5) g/dL EKG interpretations - Telemetry EKG Rhythm: Sinus Rhythm Assessment and Plan Chest pain, atypical No ischemic ECG changes Negative troponin Negative CTA chest History of normal outpatient stress test per patient last year Systemic Hypertension GERD Recommendations: Joni in am
--- NOTE | 2018-09-14 18:21 | Event Note ---
Date: 09/14/18 patient seen and evaluated Joni in Am
[2018-09-15] MEDS ORDERED: APRESOLINE IV PRN (04:45)
[2018-09-15 05:29] LABS: Basophils % (Auto) 0.4 % (0.0-1.8); Eosinophils # (Auto) 0.1 K/mm3 (0.0-0.4); Hematocrit 42.6 % (35.5-45.6); Hemoglobin 14.3 gm/dl (11.8-15.2); Lymphocytes # (Auto) 1.6 K/mm3 (1.2-5.4); Lymphocytes % (Auto) 24.9 % (13.4-35.0); Mean Corpuscular HGB Conc 34 % (32-34); Mean Corpuscular Volume 84 fl (84-94); Monocytes # (Auto) 0.6 K/mm3 (0.0-0.8); Monocytes % (Auto) 8.7 % (0.0-7.3); Platelet Count 172 K/mm3 (140-440); Red Blood Count 5.05 M/mm3 (3.65-5.03); Red Cell Distribution Width 14.5 % (13.2-15.2)
[2018-09-15 06:07] LABS: BUN/Creatinine Ratio 11; Blood Urea Nitrogen 10 mg/dL (9-20); Calcium 9.3 mg/dL (8.4-10.2); Hemolysis Index 14
[2018-09-15] MEDS ORDERED: LEXISCAN IV ONE ×2 (07:56→08:01)
--- NOTE | 2018-09-15 10:30 | Progress Note ---
Assessment and Plan Chest pain, atypical No ischemic ECG changes Negative troponin Negative CTA chest Normal MPI this admission Normal LVEF by echo Systemic Hypertension GERD Recommendations: No further cardiac work-up is needed BP control May go home cardiac [facility] Subjective Date of service: 09/15/18 Principal diagnosis: Chest Pain Interval history: No events overnight No events on tele Objective Vital Signs Temp Pulse Resp BP BP Pulse Ox 09/15/18 08:13 187/101 09/15/18 08:11 181/96 09/15/18 08:09 187/97 09/15/18 08:07 168/95 09/15/18 08:05 180/102 09/15/18 07:46 174/99 09/15/18 04:59 71 186/114 09/15/18 04:09 98.0 F 71 18 185/114 99 09/14/18 23:56 82 09/14/18 23:23 98.0 F 84 18 174/94 97 09/14/18 19:24 98.3 F 82 18 157/75 98 09/14/18 17:32 87 145/96 99 09/14/18 11:57 98.3 F 87 18 177/110 98 09/14/18 11:06 99.1 F 89 22 157/91 95 - Physical Examination HEENT: Positive: PERRL Neck: Positive: neck supple Cardiac: Positive: Reg Rate and Rhythm Lungs: Positive: Normal Exam Neuro: Positive: Grossly Intact Abdomen: Positive: Soft Extremities: Present: normal - Labs and Meds CBC 09/15/18 Range/Units 04:26 WBC 6.4 (4.5-11.0) K/mm3 RBC 5.05 H (3.65-5.03) M/mm3 Hgb 14.3 (11.8-15.2) gm/dl Hct 42.6 (35.5-45.6) % Plt Count 172 (140-440) K/mm3 Lymph # 1.6 (1.2-5.4) K/mm3 [place] # 0.6 (0.0-0.8) K/mm3 Eos # 0.1 (0.0-0.4) K/mm3 Baso # 0.0 (0.0-0.1) K/mm3 Comprehensive Metabolic Panel 09/15/18 Range/Units 04:26 Sodium 141 (137-145) mmol/L Potassium 3.7 (3.6-5.0) mmol/L Chloride 103.5 (98-107) mmol/L Carbon Dioxide 27 (22-30) mmol/L BUN 10 (9-20) mg/dL Creatinine 0.9 (0.8-1.5) mg/dL Glucose 101 H (75-100) mg/dL Calcium 9.3 (8.4-10.2) mg/dL
[2018-09-15] MEDS: LOVENOX SUB-Q SCH (10:34)
[2018-09-15] MEDS: SODIUM CHLORIDE FLUSH SYRINGE 10 ML IV SCH (10:35)
[2018-09-15] MEDS ORDERED: COREG PO SCH (11:00)
[2018-09-15] MEDS ORDERED: ZESTRIL PO SCH (11:00)
[2018-09-15] MEDS ORDERED: THALITONE PO SCH (11:00)
[2018-09-15] MEDS ORDERED: K-DUR PO SCH (11:00)
--- NOTE | 2018-09-15 12:37 | Treadmill Report ---
INDICATION FOR PROCEDURE: Chest pain. FINDINGS: There is no scintigraphic evidence of myocardial ischemia. The left ventricle is normal in size and systolic function. The left ventricular ejection fraction is measured at 67%. Normal wall motion and wall thickening is noted on gated imaging. CONCLUSION: Normal perfusion scan. JOB# [id number] EARL/SHERRY
[2018-09-15] MEDS ORDERED: ALUM-MAG HYDROX-SIMETH 200-200-20MG/5ML PO PRN (13:57)
[2018-09-15] MEDS ORDERED: PROTONIX PO SCH (15:00)
[2018-09-15 15:51] VITALS: BP 133/84
--- NOTE | 2018-09-15 16:10 | Discharge Summary ---
Providers - Providers Date of Admission: 09/14/18 08:23 Date of discharge: 09/15/18 Attending physician: RAMIREZ HERNANDEZ 09/14/18 05:46 Consult to Physician [CONS] Routine Comment: Consulting Provider: RUFINA DILL Physician Instructions: Reason For Exam: cp Primary care physician: DAVID ESTRADA Hospitalization Condition: Good Hospital course: Chest pain, atypical No ischemic ECG changes Negative troponin Negative CTA chest Normal MPI this admission Normal LVEF by echo Systemic Hypertension GERD Recommendations: No further cardiac work-up is needed BP control D/c home Disposition: DC-01 TO HOME OR SELFCARE Core Measure Documentation - Palliative Care Palliative Care/ Comfort Measures: Not Applicable - Core Measures Any of the following diagnoses?: none Exam - Constitutional Vitals: Temp Pulse Resp BP Pulse Ox 98.0 F 76 15 133/84 97 09/15/18 04:09 09/15/18 15:50 09/15/18 13:05 09/15/18 15:50 09/15/18 15:50 General appearance: Present: no acute distress, well-nourished - EENT Eyes: Present: PERRL ENT: hearing intact, clear oral mucosa - Neck Neck: Present: supple, normal ROM - Respiratory Respiratory effort: normal Respiratory: bilateral: CTA - Cardiovascular Heart Sounds: Present: S1 & S2. Absent: rub, click - Extremities Extremities: pulses symmetrical, No edema Peripheral Pulses: within normal limits - Abdominal General gastrointestinal: Present: soft, non-tender, non-distended, normal bowel sounds Male genitourinary: Present: normal - Integumentary Integumentary: Present: clear, warm, dry - Musculoskeletal Musculoskeletal: gait normal, strength equal bilaterally - Psychiatric Psychiatric: appropriate mood/affect, intact judgment & insight - Neurologic Neurologic: CNII-XII intact, moves all extremities Plan Activity: no restrictions Diet: low cholesterol, low salt Follow up with: DAVID ESTRADA MD [Primary Care Provider] - 3-5 Days
== END 2018-09-15 18:38 | disposition home or self-care (01) ==
LOC: ED 20:51 → 4A 09-14 08:23
PROVIDERS: ADMIT Internal Medicine; ATTEND Internal Medicine
DX: I16.0 Hypertensive urgency (principal); R07.89 Other chest pain; I10 Essential (primary) hypertension; E78.5 Hyperlipidemia, unspecified; K21.9 Gastro-esophageal reflux disease without esophagitis
CPT/HCPCS: 36415; 71046; 71275; 74174; 78452; 80048; 80076; 81001; 82550; 83690; 83735; 84484; 85025; 93005; 93010; 93017; 93306; 96372; 96374; 96375; 96376; 99284; A9502; G0378; J0360; J1650; J2785; Q9967; J1644